=== PATIENT | female | born 1975 | race Caucasian/White ===

== ENCOUNTER 2016-10-10 17:04 | Emergency (ER) | payer MEDICAID, OTHER, SELFPAY ==
[2016-10-10 17:23] VITALS: BMI 29.6
[2016-10-10 17:26] VITALS: TEMP 98.8; O2SAT 96
[2016-10-10] MEDS ORDERED: Sodium Chloride 0.9% 1,000 ML IV STA (18:23)
[2016-10-10 18:25] VITALS: RESP 18
--- NOTE | 2016-10-10 18:35 | ED PDOC ---
Arrival/HPI - General Chief Complaint: Abdominal Pain Time Seen by Provider: 10/10/16 17:28 Historian: Patient - History of Present Illness Narrative History of Present Illness (Text): 10/10/16 18:35 A 41 year old female, with a history of a 10 cm cyst, presents to the emergency department complaining of left lower quadrant abdominal pain since this morning. Patient denies any other complaints at this time. Symptom Onset: Sudden Symptom Course: Unchanged Activities at Onset: Rest Context: Home Past Medical History - Provider Review Nursing Documentation Reviewed: Yes - Infectious Disease Hx of Infectious Diseases: None - Genitourinary/Gynecological Hx Genitourinary Disorders: Yes Other/Comment: ovarian cyst, pt unsure of which side - Psychiatric Hx Substance Use: No - Anesthesia Hx Anesthesia: No - Suicidal Assessment Feels Threatened In Home Enviroment: No Family/Social History - Physician Review Nursing Documentation Reviewed: Yes Family/Social History: No Known Family HX Smoking Status: Never Smoked Hx Alcohol Use: No Hx Substance Use: No Allergies/Home Meds Allergies/Adverse Reactions: Allergies No Known Allergies Allergy (Verified 10/10/16 17:23) Review of Systems - Physician Review All systems were reviewed & negative as marked: Yes Physical Exam - Physical Exam Narrative Physical Exam (Text): 10/10/16 18:33- Review of Systems Constitutional: Normal. absent: Fatigue, Weight Change, Fevers Eyes: Normal ENT: Normal Respiratory: Normal absent: SOB, Cough, Sputum Cardiovascular: Normal absent: Chest pain, Palpitations, Syncope Gastrointestinal: LLQ abdominal pain absent: Diarrhea, Nausea, Vomiting Genitourinary: Normal. absent: Dysuria, Frequency, Hematuria Musculoskeletal: Normal. absent: Arthralgias, Back Pain, Neck Pain Skin: Normal Neurological: Normal absent: Focal Weakness Endocrine: Normal Hemo/Lymphatic: Normal Psychiatric: Normal - Physical exam Patient appears age appropriate, speaking full sentences without difficulty - Systems Exam Head: Present: Atraumatic, Normocephalic Pupils: Present: PERRL Extraocular Muscles: Present: EOMI Conjunctiva: Present: Normal Mouth: Present: Moist Mucous Membranes Neck: Present: Normal Range of Motion. No: MIDLINE TENDERNESS, Paraspinal Tenderness Respiratory/Chest: Present: Clear to Auscultation, Good Air Exchange. No: Respiratory Distress, Accessory Muscle Use, Tachypnic Cardiovascular: Present: Regular Rate and Rhythm, Normal S1, S2, Peripheral Pulses Present. No: Murmurs Abdomen: Present: mild LLQ ttp, Normal Bowel Sounds, No: Peritoneal Signs, Rebound, Guarding, Distention Back: Present: Normal Inspection. No: Midline Tenderness, Paraspinal Tenderness Upper Extremity: Present: Normal Inspection. No: Cyanosis, Edema Lower Extremity: Present: Normal Inspection. No: Edema Neurological: Present: GCS=15, Speech Normal, cranial nerves II through XII fully intact with no cerebellar abnormality, neuro-sensory fully intact. No focal neurological deficits. Skin: Present: Warm, Dry, Normal Color. No: Rashes Lymphatic: Present: OX3, NI, NC Psychiatric: Present: Alert, Oriented x 3, Normal Insight, Normal Concentration Vital Signs Reviewed: Yes Vital Signs Temp Pulse Resp BP Pulse Ox 10/10/16 20:14 68 18 121/71 96 10/10/16 18:24 75 18 123/79 96 10/10/16 17:25 98.8 F 77 19 125/88 96 Temperature: Afebrile Blood Pressure: Normal Pulse: Regular Respiratory Rate: Normal Appearance: Positive for: Well-Appearing, Non-Toxic, Comfortable Pain Distress: Moderate Mental Status: Positive for: Alert and Oriented X 3 Medical Decision Making ED Course and Treatment: 10/10/16 18:31 Impression: A 41 year old female with left lower quadrant abdominal pain. On physical exam, mild tenderness to palpation of left lower quadrant. Differential Diagnosis included but are not limited to: torsion vs. ovarian cyst vs. cystic rupture Plan: -- Transvaginal US -- labs -- Urinalysis -- Morphine, IV fluids, Toradol -- Reassess and disposition Prior Visits: Notes and results from previous visits were reviewed. Patient last reported to the emergency department on 11/10/14 for evaluation of abdominal pain. Progress Notes: US Pelvis Complete, Transabdominal US Pelvis, Transvaginal FINDINGS: Uterus/cervix: The uterus measures 8.7 x 5.5 x 5.1 cm. The endometrial stripe, upon remeasurement, measures 8 mm. Hypoechoic nabothian cysts are visualized at the level of the cervix. No myometrial mass. Right ovary: Within the right adnexa, there is a 10.9 x 6.8 x 11.1 cm cystic collection of fluid. Physiologic blood flow is identified within the right ovary, without evidence of torsion. The right ovary measures 3.0 x 2.2 x 2.7 cm. Hypoechoic follicles are visualized within the right ovary. The largest follicle measures 0.9 cm in length. Left ovary: The left ovary measures 2.2 x 2.0 x 2.2 cm. Hypoechoic follicles are visualized within the left ovary. Physiologic blood flow is identified within the left ovary, without evidence of torsion. Free fluid: There is minimal fluid within the cul-de-sac. Bladder: Wall is normal thickness for degree of distention. IMPRESSION: 1. Within the right adnexa, there is a 10.9 x 6.8 x 11.1 cm cystic collection of fluid. Follow-up ultrasonography is recommended. 2. There is minimal fluid within the cul-de-sac. 3. Physiologic blood flow is identified within the each ovary, without evidence of torsion. 4. Hypoechoic nabothian cysts are visualized at the level of the cervix. Dictated and Authenticated by: Cyrus Devine MD 10/10/2016 8:35 PM Eastern Time ([place] & [place]) 10/10/16 21:41 On reevaluation, patient reports that she feels much better and would like to be discharged home. Patient's repeat abdominal exam is soft, nontender, non distended with positive bowel sounds in all 4 quadrants and no peritoneal signs. Patient is tolerating PO without any difficulty. Pt states she understands to return to the ER right away for new or worsening symptoms or for inability to f/u with PMD or specialist as instructed. Patient states that she fully agrees with and understands discharge instructions. States that she agrees with the plan and disposition. Verbalized and repeated discharge instructions and plan. I have given the patient opportunity to ask any additional questions. - Lab Interpretations Lab Results: 10/10/16 20:10 10/10/16 20:10 Lab Results 10/10/16 20:10: Blood Type Pending, Antibody Screen Pending, BBK History Checked Patient has bt 10/10/16 20:10: Sodium 136, Potassium 3.9, Chloride 104, Carbon Dioxide 24, Anion Gap 12, BUN 17, Creatinine 0.6, Est GFR ( Amer) > 60, Est GFR (Non- Af Amer) > 60, Random Glucose 102, Calcium 8.7, Total Bilirubin 0.4, AST 27, ALT 46, Alkaline Phosphatase 92, Total Protein 7.9, Albumin 4.2, Globulin 3.6, Albumin/Globulin Ratio 1.2 10/10/16 20:10: PT 11.2, INR 1.04, APTT 27.3 10/10/16 20:10: WBC 10.9, RBC 4.16, Hgb 10.9 L, Hct 33.7 L, MCV 81.0, MCH 26.2, MCHC 32.3, RDW 15.2 H, Plt Count 257, MPV 10.9, Gran % 74.6 H, Lymph % (Auto) 20.5 L, [place] % (Auto) 3.5, Eos % (Auto) 1.0 L, Baso % (Auto) 0.4, Gran # 8.14 H , Lymph # 2.2, [place] # 0.4, Eos # 0.1, Baso # 0.04 10/10/16 18:25: Urine Color Yellow, Urine Appearance Turbid, Urine pH 6.0, Ur Specific [place] >= 1.030, Urine Protein 30 H, Urine Glucose (UA) Negative, Urine Ketones Negative, Urine Blood Large H, Urine Nitrate Negative, Urine Bilirubin Negative, Urine Urobilinogen 0.2, Ur Leukocyte Esterase Trace H, Urine RBC Tntc, Urine WBC 15 - 20, Ur Epithelial Cells 6 - 8, Urine Bacteria Few I have reviewed the lab results: Yes - RAD Interpretation Radiology Orders: 10/10/16 18:24 TRANSVAGINAL [US] Stat - Medication Orders Current Medication Orders: Discontinued Medications Sodium Chloride (Sodium Chloride 0.9%) 1,000 mls @ 1,000 mls/hr IV .Q1H STA Stop: 10/10/16 19:22 Last Admin: 10/10/16 18:57 Dose: 1,000 mls/hr Ketorolac Tromethamine (Toradol) 30 mg IVP STAT STA Stop: 10/10/16 18:24 Last Admin: 10/10/16 18:56 Dose: 30 mg Morphine Sulfate (Morphine) 6 mg IVP STAT STA Stop: 10/10/16 18:24 Last Admin: 10/10/16 18:56 Dose: 6 mg - Scribe Statement The provider has reviewed the documentation as recorded by the Dimitris Smith Provider Scribe Attestation: All medical record entries made by the Scribe were at my direction and personally dictated by me. I have reviewed the chart and agree that the record accurately reflects my personal performance of the history, physical exam, medical decision making, and the department course for this patient. I have also personally directed, reviewed, and agree with the discharge instructions and disposition. Disposition/Present on Arrival - Present on Arrival Any Indicators Present on Arrival: No History of DVT/PE: No History of Uncontrolled Diabetes: No Urinary Catheter: No History of Decub. Ulcer: No History Surgical Site Infection Following: None - Disposition Have Diagnosis and Disposition been Completed?: Yes Diagnosis: Abdominal pain Disposition: HOME/ ROUTINE Disposition Time: 21:48 Patient Plan: Discharge Condition: GOOD Discharge Instructions (ExitCare): Acute Abdominal Pain (ED), Abdominal Pain ( ED), Pelvic Pain in Women (ED) Additional Instructions: PLEASE RETURN TO THE EMERGENCY DEPARTMENT FOR NEW OR WORSENING SYMPTOMS. RETURN RIGHT AWAY IF YOU CANNOT FOLLOW UP WITH YOUR PRIMARY CARE DOCTOR, CLINIC, OR SPECIALIST IN 1-2 DAYS. Prescriptions: Naproxen [Naprosyn Tab] 250 mg PO Q8 #12 tab Nitrofurantoin Macrocrystals [Macrobid] 100 mg PO BID #14 cap Referrals: Sylvester Salas, [Primary Care Provider] - Follow up with primary Ca King MD [Staff Provider] - Follow up with primary
[2016-10-10 18:49] LABS: URINE APPEARANCE TURBID (CLEAR); URINE BILIRUBIN NEGATIVE (NEGATIVE); URINE BLOOD LARGE (NEGATIVE); URINE COLOR YELLOW (YELLOW); URINE GLUCOSE (UA) NEGATIVE (NEGATIVE); URINE LEUKOCYTE ESTERASE TRACE Leu/uL (NEGATIVE); URINE NITRATE NEGATIVE (NEGATIVE); URINE PROTEIN 30 mg/dL (<30 mg/dL); URINE UROBILINOGEN 0.2 E.U./dL (<1 E.U./dL)
[2016-10-10 18:53] LABS: URINE BACTERIA FEW (NEG); URINE RBC TNTC /hpf (0-2); URINE WBC 15 - 20 /hpf (0-6)
[2016-10-10 20:14] VITALS: BP 121/71; PULSE 68
[2016-10-10 20:34] LABS: BASO # 0.04 K/mm3 (0.0-2.0); BASO % 0.4 % (0.0-3.0); EOS # 0.1 (0.0-0.7); GRAN # 8.14 (1.4-6.5); GRAN % 74.6 % (50.0-68.0); HEMOGLOBIN 10.9 gm/dL (12.0-16.0); LYMPH # 2.2 (1.2-3.4); LYMPH % 20.5 % (22.0-35.0); MEAN CORPUSCULAR HEMOGLOBIN 26.2 pg (25.0-35.0); MEAN CORPUSCULAR HGB CONC 32.3 g/dl (31.0-37.0); MEAN PLATELET VOLUME 10.9 fl (7.0-11.0); MONO # 0.4 (0.1-0.6); MONO % 3.5 % (1.0-6.0); PLATELET COUNT 257 10^3/uL (120.0-450.0); RBC 4.16 10^6/uL (3.5-6.1); RED CELL DISTRIBUTION WIDTH 15.2 % (11.5-14.5); WHITE BLOOD COUNT 10.9 10^3/ul (4.5-11.0)
--- NOTE | 2016-10-10 20:35 | US ---
EXAM: US Pelvis Complete, Transabdominal US Pelvis, Transvaginal CLINICAL HISTORY: The patient age is 41 years old and is female; Pain; Pelvic pain; Additional info: R/O torsion Facility exam id and description: Us transve transvaginal TECHNIQUE: Real-time transabdominal and transvaginal pelvic ultrasound (complete) with image documentation. Transvaginal imaging was used for better evaluation of the endometrium and adnexa. EXAM DATE/TIME: 10/10/2016 6:24 PM COMPARISON: No relevant prior studies available. FINDINGS: Uterus/cervix: The uterus measures 8.7 x 5.5 x 5.1 cm. The endometrial stripe, upon remeasurement, measures 8 mm. Hypoechoic nabothian cysts are visualized at the level of the cervix. No myometrial mass. Right ovary: Within the right adnexa, there is a 10.9 x 6.8 x 11.1 cm cystic collection of fluid. Physiologic blood flow is identified within the right ovary, without evidence of torsion. The right ovary measures 3.0 x 2.2 x 2.7 cm. Hypoechoic follicles are visualized within the right ovary. The largest follicle measures 0.9 cm in length. Left ovary: The left ovary measures 2.2 x 2.0 x 2.2 cm. Hypoechoic follicles are visualized within the left ovary. Physiologic blood flow is identified within the left ovary, without evidence of torsion. Free fluid: There is minimal fluid within the cul-de-sac. Bladder: Wall is normal thickness for degree of distention. IMPRESSION: 1. Within the right adnexa, there is a 10.9 x 6.8 x 11.1 cm cystic collection of fluid. Follow-up ultrasonography is recommended. 2. There is minimal fluid within the cul-de-sac. 3. Physiologic blood flow is identified within the each ovary, without evidence of torsion. 4. Hypoechoic nabothian cysts are visualized at the level of the cervix.
[2016-10-10 20:36] LABS: ALB/GLOB RATIO 1.2 (1.1-1.8); ALBUMIN 4.2 g/dL (3.0-4.8); ALT/SGPT 46 U/L (7-56); AST/SGOT 27 U/L (15-39); BLOOD UREA NITROGEN 17 mg/dL (7-21); CALCIUM 8.7 mg/dL (8.4-10.5); GFR AFRICAN-AMERICAN > 60; GFR NON-AFRICAN AMERICAN > 60
[2016-10-10 20:41] LABS: INR 1.04 (0.93-1.08); PARTIAL THROMBOPLASTIN TIME 27.3 Seconds (23.7-30.8); PROTHROMBIN TIME 11.2 Seconds (9.9-11.8)
== END 2016-10-10 22:08 | disposition home or self-care (01) ==
LOC: ED 17:04
DX: R10.9 Unspecified abdominal pain (principal)
CPT/HCPCS: 76830; 80053; 81001; 85025; 85610; 85730; 86850; 86900; 87086; 87181; 96374; 96375; 99284; J1885; J2270; J7040